=== PATIENT | female | born 1985 | race Hispanic/Latino ===

== ENCOUNTER 2020-01-31 11:24 | Emergency (ER) | payer SELFPAY ==
[2020-01-31] MEDS ORDERED: ONDANSETRON INJ 4 MG/2 ML VIAL IV ONE (11:30)
[2020-01-31] MEDS ORDERED: SODIUM CHLORIDE 0.9% (FLUSH) 10 ML SYG IV PRN (11:30)
[2020-01-31] MEDS ORDERED: SODIUM CHLORIDE 0.9% 1000ML 1,000 ML IVS ONE (11:30)
--- NOTE | 2020-01-31 11:31 | ED.PDOC ---
History of Present Illness - General Time Seen by Provider: 01/31/20 11:30 Source: patient - History of Present Illness Initial Comments: 34 YO female with PMH of chronic smoker, marijuana abuse who presents with CC of nausea and vomiting. Insidious onset 5 days ago, persistent in nature, worsened overnight with reported numerous bouts of vomiting of gastric contents. Tried some Pepto-Bismol and other [id number] medications for upset stomach w ithout relief. Reports symptoms are worse with any attempted p.o. intake. Reports some generalized abdominal discomfort and discomfort throughout her chest wall/ribs from the repeated vomiting. Denies any recent sick contacts. Denies any fevers, chills, sore throat, cough, dyspnea, diarrhea, hematemesis, urinary symptoms. Patient admits to smoking marijuana daily as well as smoking 1/2 PPD cigarettes daily. Just moved here from [facility] no local PCP. Only abdominal surgery reported is tubal ligation. No history of similar symptoms reported in the past. Allergies/Adverse Reactions: Allergies NO KNOWN ALLERGY Allergy (Verified 01/31/20 12:22) Home Medications: Ambulatory Orders Cephalexin Monohydrate [Keflex] 500 mg PO BID 10 Days #20 cap 01/31/20 Ondansetron Odt [Zofran ODT] 8 mg PO Q8H PRN 5 Days #10 tab 01/31/20 Review of Systems - Review of Systems Review of Systems: 01/31/20 11:41 as per HPI All other Systems: Reviewed and Negative Family Medical History - Family History Mother Family History: Unknown Physical Exam - Physical Exam General Appearance: Alert, Comfortable, No apparent distress Eye Exam: bilateral normal Ears, Nose, Throat: hearing grossly normal, normal ENT inspection, normal pharynx Neck: non-tender, full range of motion, supple, normal inspection Respiratory: lungs clear, normal breath sounds, no respiratory distress, no accessory muscle use Cardiovascular/Chest: normal peripheral pulses, regular rate, rhythm, no edema, no gallop, no JVD, no murmur Peripheral Pulses: radial,right: 2+, radial,left: 2+ Gastrointestinal/Abdominal: soft, no organomegaly, abnormal bowel sounds - decreased throughout , tenderness - mild generalized w/o guarding or rebound Back Exam: normal inspection, no CVA tenderness, no vertebral tenderness Extremity: normal range of motion, non-tender, normal inspection, no pedal edema, no calf tenderness Neurologic: weight calculator II-XII nml as tested, no motor/sensory deficits, alert, normal mood/affect, oriented x 3 Skin Exam: normal color, warm/dry Progress - Progress Progress: 01/31/20 11:42 Intractable nausea & vomiting -Suspect cannabinoid induced intractable nausea and vomiting. Consider also acute gastroenteritis, acute gastritis, pancreatitis, cholelithiasis, acute cholecystitis, , UTI, metabolic derangement, other. -Patient stable on arrival, NAD, vitals WNL. -Obtain blood work, UA, hCG, drug screen, strep, flu. Place PIV, 1L NS bolus, Zofran 4 mg IV, Protonix 40 mg IV. 01/31/20 12:45 -Patient reexamined, remained stable, NAD. Reports feeling markedly improved following Zofran and IV fluids. -Labs reveal strep positive, WBC 12.9 with slight left shift. K slightly low (replaced orally in ED), hCG negative. UA with 5-10 WBC, 3+ bacteria, +nitrites - suspicious for UTI. Urine drug screen reveals positive cannabinoids, otherwise negative. Labs otherwise largely unremarkable. -Discussed findings with patient as well as diagnosis of cannabinoid hyperemesis syndrome, strep pharyngitis, and UTI. Will treat strep and UTI with Keflex 500 mg p.o. twice daily for 10 days, first dose here. Advised cessation of marijuana use. Advised to remain well-hydrated, advance diet and activity level as tolerated. We will give as needed Rx of Zofran. -DC to home in good condition, return warnings discussed at length. Shar Villalobos MD Billing #[id number] 01/31/20 11:30 IV Care:Saline Lock per Protoc QSHIFT Sodium Chloride 0.9% (Flush) [Saline Flush Syringe] 10 ml IV PRN PRN 01/31/20 12:30 Urine Culture Stat Laboratory Results - last 24 hr 01/31/20 01/31/20 01/31/20 11:37 11:45 11:45 WBC 12.9 H RBC 4.16 L Hgb 12.2 Hct 37.2 MCV 89.5 MCH 29.3 MCHC 32.7 L RDW 14.3 Plt Count 338 MPV 7.5 Absolute Neuts (auto) 9.90 H Absolute Lymphs (auto) 2.10 Absolute Monos (auto) 1.00 H Absolute Eos (auto) 0.00 Absolute Basos (auto) 0.00 Neutrophils % 76.2 Lymphocytes % 15.9 L Monocytes % 7.5 Eosinophils % 0.1 L Basophils % 0.3 Sodium 137 Potassium 3.3 L Chloride 106 Carbon Dioxide 24 Anion Gap 10.3 L BUN 9 Creatinine 0.56 L BUN/Creatinine Ratio 16.1 Random Glucose 108 H Serum Osmolality 273.0 L Calcium 8.7 Total Bilirubin 0.7 Direct Bilirubin 0.1 Indirect Bilirubin 0.6 AST 11 ALT 11 Alkaline Phosphatase 61 Serum Total Protein 7.6 Albumin 4.2 Amylase 25 L Lipase 24 Serum HCG, Qual Urine Color Urine Appearance Urine pH Ur Specific [place] Urine Protein Urine Glucose (UA) Urine Ketones Urine Blood Urine Nitrite Urine Bilirubin Urine Urobilinogen Ur Leukocyte Esterase Urine RBC Urine WBC Ur Epithelial Cells Urine Bacteria Urine HCG, Qual Urine Opiates Screen Urine Barbiturates Ur Phencyclidine Scrn U Amphetamin/Meth Scrn U Benzodiazepines Scrn U Cocaine Metab Screen U Cannabinoids Screen Group A Strep Rapid Positive 01/31/20 01/31/20 01/31/20 11:45 12:30 12:30 WBC RBC Hgb Hct MCV MCH MCHC RDW Plt Count MPV Absolute Neuts (auto) Absolute Lymphs (auto) Absolute Monos (auto) Absolute Eos (auto) Absolute Basos (auto) Neutrophils % Lymphocytes % Monocytes % Eosinophils % Basophils % Sodium Potassium Chloride Carbon Dioxide Anion Gap BUN Creatinine BUN/Creatinine Ratio Random Glucose Serum Osmolality Calcium Total Bilirubin Direct Bilirubin Indirect Bilirubin AST ALT Alkaline Phosphatase Serum Total Protein Albumin Amylase Lipase Serum HCG, Qual Negative Urine Color Yellow Urine Appearance Clear Urine pH 7.0 Ur Specific [place] 1.015 Urine Protein Negative Urine Glucose (UA) Negative Urine Ketones 40 H Urine Blood Moderate H Urine Nitrite Positive H Urine Bilirubin Negative Urine Urobilinogen 0.2 Ur Leukocyte Esterase Small H Urine RBC 0 Urine WBC 5-10 H Ur Epithelial Cells 3-5 Urine Bacteria 3+ H Urine HCG, Qual Cancelled Urine Opiates Screen Negative Urine Barbiturates Negative Ur Phencyclidine Scrn Negative U Amphetamin/Meth Scrn Negative U Benzodiazepines Scrn Negative U Cocaine Metab Screen Negative U Cannabinoids Screen Positive H Group A Strep Rapid Departure - Departure Clinical Impression: Cannabinoid hyperemesis syndrome, Strep pharyngitis Time of Disposition: 12:49 Disposition: Discharge to Home or Self Care Condition: Good Instructions: Nausea and Vomiting, Adult (DC), Marijuana Use and Addiction (DC) Diet: bland diet Activity: increase activity as tolerated Prescriptions: Cephalexin Monohydrate [Keflex] 500 mg PO BID 10 Days #20 cap Ondansetron Odt [Zofran ODT] 8 mg PO Q8H PRN 5 Days #10 tab PRN Reason: Nausea Home Medications: Ambulatory Orders Cephalexin Monohydrate [Keflex] 500 mg PO BID 10 Days #20 cap 01/31/20 Ondansetron Odt [Zofran ODT] 8 mg PO Q8H PRN 5 Days #10 tab 01/31/20 Additional Instructions: I strongly recommend that you quit using marijuana as it is likely the cause of your intractable nausea and vomiting. Remain well-hydrated and advance your diet as tolerated. You may take the Zofran as directed for nausea. Return to the ED if your symptoms again worsen or other concerning symptoms develop such as blood in the vomit or stool, worsening abdominal pain, fever >100.4 F, etc. Follow-up with your primary care physician is recommended in the next 1 to 2 weeks or sooner as needed.
[2020-01-31] MEDS ORDERED: PANTOPRAZOLE SODIUM IV 40 MG VIAL IV ONE (11:37)
[2020-01-31] MEDS ORDERED: POTASSIUM CHLORIDE 20 MEQ TAB PO ONE (12:26)
[2020-01-31 12:50] VITALS: TEMP 99.1
[2020-01-31] MEDS ORDERED: CEPHALEXIN MONOHYDRATE 250 MG CAP PO ONE (13:08)
[2020-01-31 13:33] VITALS: BP 130/76; O2SAT 96
== END 2020-01-31 13:33 | disposition home or self-care (01) ==
LOC: ER 11:24
DX: R11.2 Nausea with vomiting, unspecified (principal); F12.10 Cannabis abuse, uncomplicated; J02.0 Streptococcal pharyngitis; R10.84 Generalized abdominal pain; F17.210 Nicotine dependence, cigarettes, uncomplicated
CPT/HCPCS: 36415; 80048; 80076; 80307; 81001; 82150; 83690; 84703; 85025; 87086; 87502; 87880; A4216; J2405; J7030

== ENCOUNTER 2020-06-17 08:56 | Emergency (ER) | payer SELFPAY ==
[2020-06-17 09:13] VITALS: TEMP 96.9; O2SAT 99
--- NOTE | 2020-06-17 09:13 | ED.PDOC ---
History of Present Illness - General Chief Complaint: Problem Stated Complaint: Burning, frequency, odor with urination Time Seen by Provider: 06/17/20 09:00 Source: patient, RN notes reviewed, Vital Signs reviewed Exam Limitations: no limitations - History of Present Illness Initial Comments: This is a 34-year-old female presenting to the emergency department with 2 weeks of dysuria, urinary frequency, dark-colored urine. She states urine is malodorous. She denies any vaginal discharge. She denies any flank pain or blood in the urine. She states she was diagnosed with a UTI several months ago, but did not complete antibiotics due to the of her . She states symptoms never completely went away but it got worse over the last 2 weeks. She denies any nausea or vomiting. Allergies/Adverse Reactions: Allergies NO KNOWN ALLERGY Allergy (Verified 01/31/20 12:22) Home Medications: Ambulatory Orders Cephalexin Monohydrate [Keflex] 500 mg PO BID 10 Days #20 cap 01/31/20 Ondansetron Odt [Zofran ODT] 8 mg PO Q8H PRN 5 Days #10 tab 01/31/20 Review of Systems - Review of Systems Constitutional: Denies: chills, fever Gastrointestinal/Abdominal: Denies: abdominal pain, diarrhea, nausea, vomiting Genitourinary: States: dysuria. Denies: discharge, frequency, hematuria Musculoskeletal: Denies: back pain, joint pain, muscle pain, neck pain Neurological: Denies: headache, paresthesia, tingling Endocrine: States: no symptoms reported Hematologic/Lymphatic: States: no symptoms reported Past Medical History (General) - Patient Medical History Hx Congestive Heart Failure: No Hx Diabetes: No - Vaccination History Hx Tetanus, Diphtheria Vaccination: No Hx Influenza Vaccination: No - Social History Hx Substance Use: Yes - marijuana - Female History Patient : No Family Medical History - Family History Mother Family History: Unknown Physical Exam - Physical Exam General Appearance: Alert, Comfortable Cardiovascular/Respiratory: regular rate, rhythm, no M/R/G, normal breath sounds, no respiratory distress Gastrointestinal/Abdominal: normal bowel sounds, non tender, soft Pelvic Exam: external exam normal, no cerv. motion tender, discharge - Clear, mucoid, tender adnexa - Mild, left adnexa, other - Pelvic exam was performed with female RN present in the room. Back Exam: normal inspection, no CVA tenderness, no vertebral tenderness Neurologic: no motor/sensory deficits, normal mood/affect, oriented x 3 Skin Exam: normal color, warm/dry Progress - Progress Progress: 06/17/20 09:55 The patient elected to sign out AMA. Patient states she had a family emergency and could not await results. Patient instructed to return to emergency room for any problems or any other concerns or if she would like to proceed with her work-up. AMA form signed. MDM: Dysuria of uncertain etiology. Wet prep negative, UA negative, urine culture pending. Etiology of symptoms unclear. Pelvic exam was performed showing no clear pathology. Patient had to leave due to family emergency prior to completion of the work-up. Brijesh Contreras DO [facility] [place] #[id number] - Results/Orders Results/Orders: Laboratory Tests 06/17/20 09:06 Urine Color Yellow Urine Appearance Clear Urine pH 7.0 Ur Specific [place] 1.025 Urine Protein Negative Urine Glucose (UA) Negative Urine Ketones Negative Urine Blood Small H Urine Nitrite Negative Urine Bilirubin Negative Urine Urobilinogen 0.2 Ur Leukocyte Esterase Negative Urine RBC 3-5 H Urine WBC 0 Ur Epithelial Cells 3-5 Urine Bacteria 0 Wet prep negative Urine culture pending Departure - Departure Clinical Impression: Dysuria Disposition: Left Against Medical Advice Condition: Good Departure Forms: ED Discharge - Pt. Copy, Patient Portal Self Enrollment Home Medications: Ambulatory Orders Cephalexin Monohydrate [Keflex] 500 mg PO BID 10 Days #20 cap 01/31/20 Ondansetron Odt [Zofran ODT] 8 mg PO Q8H PRN 5 Days #10 tab 01/31/20
[2020-06-17 09:58] VITALS: BP 125/80
== END 2020-06-17 09:57 | disposition left against medical advice (07) ==
LOC: ER 08:56
DX: R30.0 Dysuria (principal); Z53.29 Procedure and treatment not carried out because of patient's decision for other reasons

== ENCOUNTER → 2020-08-30 | Outpatient (CLI) | payer OTHER | LOC: YCFC.O 09:11 | PROVIDERS: ATTEND Nurse Practitioner Family | DX: Z20.828 Contact with and (suspected) exposure to other viral communicable diseases (principal) ==